=== PATIENT | female | born 1985 | race Caucasian/White ===

== ENCOUNTER 2016-08-14 23:02 | Emergency (ER) | payer OTHER | END 2016-08-15 | disposition home or self-care (01) | LOC: ER 23:02 | DX: S82.401A Unspecified fracture of shaft of right fibula, initial encounter for closed fracture (principal); M25.571 Pain in right ankle and joints of right foot; W01.0XXA Fall on same level from slipping, tripping and stumbling without subsequent striking against object, initial encounter; Y92.019 Unspecified place in single-family (private) house as the place of occurrence of the external cause; Z79.899 Other long term (current) drug therapy | CPT/HCPCS: 73610; 99070; 99283 ==

== ENCOUNTER 2016-08-15 22:19 | Emergency (ER) | payer OTHER | END 2016-08-16 01:51 | disposition home or self-care (01) | LOC: ER 22:19 | DX: S82.891D Other fracture of right lower leg, subsequent encounter for closed fracture with routine healing (principal); W19.XXXD Unspecified fall, subsequent encounter; Z79.899 Other long term (current) drug therapy | CPT/HCPCS: 96372; 99282-25 ==